=== PATIENT | female | born 1975 | race Caucasian/White ===

== ENCOUNTER 2017-08-12 17:07 | Emergency (ER) | payer BC | END 2017-08-12 17:35 | disposition home or self-care (01) | LOC: E/R 17:07 | DX: R22.0 Localized swelling, mass and lump, head (principal) | CPT/HCPCS: 99283 ==

== ENCOUNTER 2017-08-26 13:05 | Emergency (ER) | payer BC ==
[2017-08-26 14:59] LABS: URINE BLOOD (Dip) POC Negative (NEGATIVE); URINE GLUCOSE (Dip) POC Negative (NEGATIVE); URINE KETONES (Dip) POC Trace (NEGATIVE); URINE LEUKOCYTE EST (Dip) POC Negative (NEGATIVE); URINE NITRITE (Dip) POC Negative (NEGATIVE); URINE TOTAL PROTEIN POC Negative (NEGATIVE)
[2017-08-26] MEDS: HYDROCODONE/APAP (5/325) TAB PO (15:03)
== END 2017-08-26 16:16 | disposition home or self-care (01) ==
LOC: FTE 13:05
DX: S39.92XA Unspecified injury of lower back, initial encounter (principal); E03.9 Hypothyroidism, unspecified; V49.40XA Driver injured in collision with unspecified motor vehicles in traffic accident, initial encounter
CPT/HCPCS: 72131; 81003; 81025; 99284-25

== ENCOUNTER 2017-09-13 17:43 | Emergency (ER) | payer BC | END 2017-09-13 20:27 | disposition home or self-care (01) | LOC: FTE 17:43 | DX: H02.841 Edema of right upper eyelid (principal); H04.201 Unspecified epiphora, right side | CPT/HCPCS: 99284 ==